=== PATIENT | male | born 1995 | race Caucasian/White ===

== ENCOUNTER 2017-12-13 23:37 | Emergency (ER) | payer OTHER ==
[~2017-12-13] VITALS: Ht 170.2 cm; Wt 82.1 kg
[2017-12-14] MEDS ORDERED: NAPROSYN500 MG PO (01:11)
[2017-12-14 01:41] VITALS: BP 129/77
== END 2017-12-14 01:43 | disposition home or self-care (01) ==
LOC: EME 23:37
DX: S53.401A Unspecified sprain of right elbow, initial encounter (principal); S50.11XA Contusion of right forearm, initial encounter; W19.XXXA Unspecified fall, initial encounter; H91.90 Unspecified hearing loss, unspecified ear; F95.2 Tourette's disorder; Z96.21 Cochlear implant status
CPT/HCPCS: 73080; 73090; 99281; 99284

== ENCOUNTER 2017-12-20 16:56 | Emergency (ER) | payer OTHER ==
[~2017-12-20] VITALS: Ht 170.2 cm; Wt 81.5 kg
[~2017-12-20 16:56] MED LIST: NAPROSYN500 MG PO
[2017-12-20 20:04] VITALS: BP 124/83
== END 2017-12-20 20:07 | disposition home or self-care (01) ==
LOC: EME 16:56
DX: M79.601 Pain in right arm (principal); M25.511 Pain in right shoulder; M79.641 Pain in right hand; H91.90 Unspecified hearing loss, unspecified ear; F42.9 Obsessive-compulsive disorder, unspecified
CPT/HCPCS: 73030; 73110; 73130; 99281; 99283